=== PATIENT | male | born 1980 | race Caucasian/White ===

== ENCOUNTER 2019-01-13 09:19 | Day surgery (SDC) | payer MEDICAID ==
[~2019-01-13] VITALS: Ht 182.9 cm; Wt 68.2 kg
[2019-01-13 09:25] VITALS: BP 149/105
[2019-01-13] MEDS ORDERED: NO HOME MEDS (09:35)
[2019-01-13] MEDS ORDERED: MIDAZolam 5mg/5ml vial ONE (09:58)
[2019-01-13] MEDS ORDERED: LIDOcaine Viscous 15ml cup ONE (09:58)
[2019-01-13] MEDS ORDERED: fentaNYL/PF 50MCG/1 ML 2ML syringe ONE (09:58)
[2019-01-13 10:30] VITALS: BP 128/89
[2019-01-13 10:40] VITALS: BP 116/79
[2019-01-13 10:50] VITALS: BP 123/74
== END 2019-01-13 11:02 | disposition home or self-care (01) ==
LOC: GI LAB 09:19
PROVIDERS: ATTEND Internal Medicine Gastroenterology
DX: R13.10 Dysphagia, unspecified (principal); K22.2 Esophageal obstruction; K22.8 Other specified diseases of esophagus
CPT/HCPCS: 43239; 43249; 99152; C1726; J2250; J3010; J7040; 99153; A4620